=== PATIENT | male | born 1945 | race Caucasian/White ===

== ENCOUNTER 2017-10-24 06:53 | Day surgery (SDC) | payer SELFPAY ==
[2017-09-14 09:41] VITALS: BMI 22.4
[~2017-10-24 06:53] MED LIST: Ciprofloxacin 0.3% OPTH SOLN OS SCH; Cyclopentolate 1% Opth (2 ml) OS SCH; Flurbiprofen 0.03% Opht SOLN OS SCH; Lactated Ringer's 500 ML IV ONE; Phenylephrine 2.5% Opht Soln OS SCH; Tropicamide 1% Opht SOLUTION OS SCH
[2017-10-24] MEDS ORDERED: Tetracaine 0.5% Ophth (OR ONLY) ONE (07:33)
[2017-10-24] MEDS ORDERED: Hyaluronidase Human, Recombi 150 U/ML VIAL ONE (07:34)
[2017-10-24] MEDS ORDERED: Lidocaine 2% MPF (5 ml) Inj ONE (07:39)
[2017-10-24] MEDS ORDERED: Lactated Ringer's 1,000 ML IV ONE (08:05)
[2017-10-24] MEDS: Povidone Iodine Ophthalmic 5% Soln ONE ×2 (09:01→09:05)
[2017-10-24] MEDS: Carbachol 0.01% IO ONE ×2 (09:01→09:07)
[2017-10-24] MEDS: Chondroitin/Hyaluronate Opth Syringe KIT (0.55 ml-0.5 ml) IO ONE ×2 (09:03→09:09)
[2017-10-24] MEDS: Tobramycin/Dexamethasone OPHT OINT ONE ×2 (09:04→09:33)
[2017-10-24] MEDS ORDERED: Midazolam 2 MG/2 ML VIAL ONE (09:06)
[2017-10-24] MEDS ORDERED: Chondroitin/Hyaluronate 40 mg/ml-30 mg/ml Ophth Syringe (0.5 ml) IO ONE (09:29)
[2017-10-24 12:03] VITALS: BP 118/62; PULSE 68; RESP 16; TEMP 97.8; O2SAT 97
--- NOTE | 2017-10-25 01:21 | OP ---
PROCEDURE DATE: 10/24/2017 PREOPERATIVE DIAGNOSIS: Matured cataract, left eye. POSTOPERATIVE DIAGNOSIS: Matured cataract, left eye. OPERATIVE PROCEDURE: Phacoemulsification, left eye, insertion of posterior chamber implant with utilization of Malyugin ring. SURGEON: Boyd Dee MD. TYPE OF ANESTHESIA: Local with IV sedation. DESCRIPTION OF PROCEDURE: The patient was brought into the operating room, placed in supine position, prepped and draped in the usual fashion for ophthalmic surgery. Lid speculum was inserted, lids and exposing globe. On inspection, there was noted to be matured cataract with a 3 mm pupil. Side-port incision was made superiorly and inferiorly with disposable sharp blade. Viscoat was injected into the anterior chamber to deepen it and pupil was then dilated to only 4 mm. A near clear corneal incision was made temporally with a 2.4-mm keratome. Then a Malyugin ring was then inserted to dilate the pupil to 6 mm. A capsulorrhexis was performed with Utrata forceps. Hydrodissection carried out with balanced salt solution. The nucleus was then phacoemulsified. The remainder of the cortical fragments were removed with a split irrigation aspiration system. Capsular sac was filled with Provisc. Posterior chamber lens was inserted into the sac and rotated into horizontal position. The Malyugin ring was then removed. The Provisc was then removed with irrigation and aspiration. Pupil was constricted with Miostat. All three wounds were hydrated with balanced salt solution. The wound was found to be watertight. Topical Betadine, Timoptic and TobraDex ointment and pressure patch were applied. The patient tolerated the procedure well. Boyd Dee MD
== END 2017-10-24 10:42 | disposition home or self-care (01) ==
LOC: C.SDS 06:53
PROVIDERS: ATTEND Ophthalmology
DX: H25.092 Other age-related incipient cataract, left eye (principal)
CPT/HCPCS: 66984; J2250; J3010; J3470; J7120; V2632

== ENCOUNTER 2017-12-05 07:01 | Day surgery (SDC) | payer OTHER ==
[2017-09-14 09:41] VITALS: BMI 22.4
[~2017-12-05 07:01] MED LIST changes: +Ciprofloxacin 0.3% OPTH SOLN OD SCH; -Ciprofloxacin 0.3% OPTH SOLN OS SCH; +Cyclopentolate 1% Opth (2 ml) OD SCH; -Cyclopentolate 1% Opth (2 ml) OS SCH; +Flurbiprofen 0.03% Opht SOLN OD SCH; -Flurbiprofen 0.03% Opht SOLN OS SCH; +Phenylephrine 2.5% Opht Soln OD SCH; -Phenylephrine 2.5% Opht Soln OS SCH; +Tropicamide 1% Opht SOLUTION OD SCH; -Tropicamide 1% Opht SOLUTION OS SCH
[2017-12-05] MEDS ORDERED: Lidocaine 2% MPF (5 ml) Inj ONE (07:27)
[2017-12-05] MEDS ORDERED: Carbachol 0.01% IO ONE (07:31)
[2017-12-05] MEDS ORDERED: Povidone Iodine Ophthalmic 5% Soln ONE (07:31)
[2017-12-05] MEDS ORDERED: Tobramycin/Dexamethasone OPHT OINT ONE (07:31)
[2017-12-05] MEDS ORDERED: Tetracaine 0.5% Ophth (OR ONLY) ONE (07:31)
[2017-12-05] MEDS ORDERED: Chondroitin/Hyaluronate Opth Syringe KIT (0.55 ml-0.5 ml) IO ONE (07:32)
[2017-12-05] MEDS ORDERED: Hyaluronidase Human, Recombi 150 U/ML VIAL ONE (07:32)
[2017-12-05] MEDS ORDERED: Midazolam 2 MG/2 ML VIAL ONE (08:51)
[2017-12-05] MEDS ORDERED: Lactated Ringer's 1,000 ML IV ONE (09:00)
[2017-12-05] MEDS ORDERED: Lactated Ringer's 500 ML IV ONE ×3 (09:32)
[2017-12-05 13:06] VITALS: O2SAT 99
[2017-12-05 13:09] VITALS: BP 106/61; PULSE 68; RESP 16; TEMP 97.7
--- NOTE | 2017-12-05 16:06 | OP ---
PROCEDURE DATE: 12/05/2017 PREOPERATIVE DIAGNOSIS: Matured cataract, right eye. POSTOPERATIVE DIAGNOSIS: Matured cataract, right eye. OPERATIVE PROCEDURE: Phacoemulsification, right eye, insertion of posterior chamber implant. SURGEON: Boyd Dee MD ANESTHESIA TYPE: Local with IV sedation. DESCRIPTION OF PROCEDURE: The patient was brought into the operating room, placed in supine position, prepped and draped in the usual fashion for ophthalmic surgery. Lid speculum was inserted, lids and exposing globe. A side-port incision was made superiorly and inferiorly with a disposable sharp blade. Anterior chamber was filled with Viscoat. A near clear corneal incision was made temporally with a 2.75-mm keratome. Capsulorrhexis was then performed with Utrata forceps. Hydrodissection carried out with balanced salt solution. Nucleus was phacoemulsified. Remaining cortical fragments were removed with a split irrigation and aspiration system. The capsular sac was filled with Provisc. A posterior chamber lens was then injected into the capsular sac and rotated into horizontal position. Provisc was aspirated out of the anterior chamber. The pupil was constricted with Miochol. The wound was found to be watertight. Topical Betadine, Timoptic, and TobraDex ointment and pressure patch were applied. The patient tolerated the procedure well. Boyd Dee MD
== END 2017-12-05 11:24 | disposition home or self-care (01) ==
LOC: C.SDS 07:01
PROVIDERS: ATTEND Ophthalmology
DX: H25.13 Age-related nuclear cataract, bilateral (principal)
CPT/HCPCS: 66984; C1713; J2250; J3010; J3470; J7120; V2632

== ENCOUNTER 2017-12-13 03:14 | Emergency (ER) | payer OTHER ==
[2017-12-13 03:14] VITALS: BMI 22.4
--- NOTE | 2017-12-13 04:04 | C.PDOC ---
History Of Present Illness 72 y/o male brought to ED by a family member for complaints of not being able to pee since 9pm today. Denies any other physical complaints. 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 Chief Complaint (Nursing): Male Genitourinary History Per: Patient History/Exam Limitations: no limitations Onset/Duration Of Symptoms: Hrs Current Symptoms Are (Timing): Still Present Quality Of Discomfort: "Pain" Associated Symptoms: Urinary Symptoms. denies: Fever, Chills, Nausea, Vomiting , Diarrhea Alleviating Factors: None Recent travel outside of the [place]: No Past Medical History Reviewed: Historical Data, Nursing Documentation, Vital Signs Vital Signs: Last Vital Signs Temp 98.5 F 12/13/17 03:40 Pulse 97 H 12/13/17 03:40 Resp 18 12/13/17 03:40 BP 172/90 H 12/13/17 03:40 Pulse Ox 98 12/13/17 04:17 - Medical History PMH: No Chronic Diseases Surgical History: Appendectomy Family History: States: No Known Family Hx - Social History Hx Alcohol Use: No Hx Substance Use: No Review Of Systems Constitutional: Negative for: Fever, Chills Gastrointestinal: Negative for: Nausea, Vomiting, Abdominal Pain, Diarrhea Genitourinary: Positive for: Dysuria Skin: Negative for: Rash Neurological: Negative for: Weakness, Numbness Physical Exam - Physical Exam Appears: Non-toxic, No Acute Distress Skin: Normal Color, Warm, Dry, No Rash Head: Atraumatic, Normacephalic Eye(s): bilateral: Normal Inspection, PERRL, EOMI Oral Mucosa: Moist Neck: Supple Chest: Symmetrical, No Tenderness Cardiovascular: Rhythm Regular, No Murmur Respiratory: Normal Breath Sounds, No Decreased Breath Sounds, No Rales, No Rhonchi, No Wheezing Gastrointestinal/Abdominal: Soft, No Tenderness, No Distention Male Genital: Other (hypospadia opening of urethra; distended ) Extremity: Normal ROM, No Deformity, No Swelling Extremity: Bilateral: Atraumatic, Normal Color And Temperature, Normal ROM Neurological/Psych: Oriented x3, Normal Speech Gait: Steady ED Course And Treatment O2 Sat by Pulse Oximetry: 98 (RA) Pulse Ox Interpretation: Normal Medical Decision Making Medical Decision Making: Administered Cipro. Ordered urine culture and urinalysis. Procedure done in ER: - Lidocaine gel was applied before insertion Catheter, which was injected within the hypospadia opening of urethra. - Procedure well tolerated Disposition Counseled Patient/Family Regarding: Diagnosis - Disposition Referrals: [facility] at [facility] [Outside] Etienne Gann MD [Staff Provider] - Disposition: HOME/ ROUTINE Disposition Time: 04:20 Condition: IMPROVED Prescriptions: Ciprofloxacin [Cipro] 1 tab PO BID #14 tab Instructions: Carroll Catheter, Male, Urinary Tract Infections in Adults Forms: [employer] (Romanian) - POA Present On Arrival: None - Clinical Impression Clinical Impression: Urinary retention, Urethral stricture - Scribe Statement The provider has reviewed the documentation as recorded by the Scribe Gurwinder Chapa All medical record entries made by the Scribe were at my direction and personally dictated by me. I have reviewed the chart and agree that the record accurately reflects my personal performance of the history, physical exam, medical decision making, and the department course for this patient. I have also personally directed, reviewed, and agree with the discharge instructions and disposition.
[2017-12-13 04:17] LABS: SQUAMOUS EPITHIAL < 1 /hpf (0-5); URINE BACTERIA MOD (<OCC); URINE BILIRUBIN NEGATIVE (NEGATIVE); URINE BLOOD 2+ (NEGATIVE); URINE CLARITY Hazy (Clear); URINE COLOR Yellow (YELLOW); URINE GLUCOSE (UA) NORMAL (Normal); URINE LEUKOCYTE ESTERASE 2+ Leu/uL (Negative); URINE PROTEIN NEGATIVE (NEGATIVE); URINE UROBILINOGEN NORMAL mg/dL (0.2-1.0)
[2017-12-13 04:43] VITALS: BP 135/77; PULSE 82; RESP 14; TEMP 97.5; O2SAT 97
== END 2017-12-13 04:42 | disposition home or self-care (01) ==
LOC: C.ER 03:14
DX: R33.9 Retention of urine, unspecified (principal); N35.9 Urethral stricture, unspecified